=== PATIENT | male | born 1995 | race Caucasian/White ===

== ENCOUNTER 2020-05-20 13:43 | Emergency (ER) | payer BC ==
[~2020-05-20] VITALS: Ht 172.7 cm; Wt 72.6 kg
[2020-05-20] MEDS ORDERED: ONDA4ODT MM (15:08)
[2020-05-20] MEDS ORDERED: Norco 5-325 Ta1 EACH PO (15:08)
== END 2020-05-20 15:25 | disposition home or self-care (01) ==
LOC: ER 13:43
DX: N20.2 Calculus of kidney with calculus of ureter (principal); F17.200 Nicotine dependence, unspecified, uncomplicated
CPT/HCPCS: 96372; 99282-25; A9270; J1885

== ENCOUNTER 2020-07-16 17:04 | Emergency (ER) | payer BC ==
[~2020-07-16] VITALS: Ht 172.7 cm; Wt 68.0 kg
[~2020-07-16 17:04] MED LIST: Norco 5-325 Ta1 EACH PO; ONDA4ODT MM
[2020-07-16 18:19] LABS: BASOPHILS ABSOLUTE AUTO 0.06 K/mm3 (0.00-0.23); BASOPHILS PERCENT AUTO 1 % (0-2); EOSINOPHILS ABSOLUTE AUTO 0.07 K/mm3 (0.00-0.68); EOSINOPHILS PERCENT AUTO 1 % (0-6); Hematocrit 45.4 % (37.0-53.0); IMMATURE GRAN ABSOLUTE AUTO 0.03 K/mm3 (0.00-0.10); IMMATURE GRAN PERCENT AUTO 0 % (0-1); LYMPHOCYTES ABSOLUTE AUTO 1.83 K/mm3 (0.84-5.20); LYMPHOCYTES PERCENT AUTO 18 % (21-46); MONOCYTES ABSOLUTE AUTO 0.68 K/mm3 (0.16-1.47); MONOCYTES PERCENT AUTO 7 % (4-13); Mean Corpuscular HGB 27.8 pg (26.0-34.0); Mean Corpuscular Volume 84 fL (80-100); Mean Platelet Volume 11.5 fL (9.1-12.4); NEUTROPHILS ABSOLUTE AUTO 7.65 K/mm3 (1.96-9.15); NEUTROPHILS PERCENT AUTO 74 % (41-73); Platelet Count 201 K/mm3 (150-400); RDW Coefficient Variation 12.8 % (11.7-14.2); RDW Standard Deviation 39.4 fL (35.1-46.3); White Blood Cell Count 10.32 K/mm3 (4.00-11.30)
[2020-07-16 18:30] LABS: Alanine Aminotransfer (ALT/SGP 36 U/L (12-78); Albumin, Blood 4.1 g/dL (3.4-5.0); Albumin/Globulin Ratio 1.1 (0.8-1.8); Alk Phos 113 U/L (50-136); Anion Gap 5 mmol/L (6-16); Aspartate Aminotrans (AST/SGOT 20 U/L (12-37); Bilirubin, Total 0.3 mg/dL (0.1-1.0); Blood Urea Nitrogen 10 mg/dL (8-24); Bun/Creatinine Ratio 10.7 (12.0-20.0); CO2, Blood 29 mmol/L (21-32); Calcium, Blood 8.9 mg/dL (8.5-10.1); Chloride, Blood 107 mmol/L (98-108); Creatinine, Blood 0.94 mg/dL (0.60-1.20); Globulin, Blood 3.7 g/dL (2.2-4.0); Glomerular Filtration Rate >60 (60-); Glucose, Blood 89 mg/dL (70-99); Potassium, Blood 3.9 mmol/L (3.5-5.5); Sodium, Blood 141 mmol/L (136-145); Total Protein, Blood 7.8 g/dL (6.4-8.2)
== END 2020-07-16 21:42 | disposition left against medical advice (07) ==
LOC: ER 17:04
PROVIDERS: Physician Assistant
DX: K92.1 Melena (principal); Z53.21 Procedure and treatment not carried out due to patient leaving prior to being seen by health care provider
CPT/HCPCS: 36415; 80053; 83690; 85025; 99283

== ENCOUNTER 2020-10-07 22:43 | Emergency (ER) | payer BC ==
[~2020-10-07] VITALS: Ht 172.7 cm; Wt 68.0 kg
[2020-10-08 00:08] LABS: SARS-Cov-2 (COVID-19) PCR, MMC NEGATIVE (NEGATIVE)
== END 2020-10-08 00:26 | disposition home or self-care (01) ==
LOC: ER 22:43
PROVIDERS: Physician Assistant
DX: B34.9 Viral infection, unspecified (principal); F17.200 Nicotine dependence, unspecified, uncomplicated; Z20.822 Contact with and (suspected) exposure to COVID-19
CPT/HCPCS: 99284; U0004

== ENCOUNTER 2021-12-26 12:32 | Emergency (ER) | payer OTHER ==
[~2021-12-26] VITALS: Ht 172.7 cm; Wt 79.4 kg
[~2021-12-26 12:32] MED LIST changes: +HYDROCODONE-AC1 EA10 PO
[2021-12-26] MEDS ORDERED: HYDR1TAB94 PO (14:21)
== END 2021-12-26 14:35 | disposition home or self-care (01) ==
LOC: ER 12:32
DX: S20.212A Contusion of left front wall of thorax, initial encounter (principal); W11.XXXA Fall on and from ladder, initial encounter; F17.290 Nicotine dependence, other tobacco product, uncomplicated
CPT/HCPCS: 71101